=== PATIENT | female | born 1975 | race American Indian/Alaskan Native ===

== ENCOUNTER 2017-02-09 20:07 | Emergency (ER) | payer OTHER ==
[2017-02-09 21:22] LABS: Basophils % (Auto) 0.3 % (0.0-1.8); Eosinophils % (Auto) 0.3 % (0.0-4.3); Hematocrit 27.5 % (30.3-42.9); Hemoglobin 8.2 gm/dl (10.1-14.3); Mean Corpuscular HGB Conc 30 % (30-34); Platelet Count 353 K/mm3 (140-440); Red Blood Count 4.65 M/mm3 (3.65-5.03); Red Cell Distribution Width 19.9 % (13.2-15.2)
[2017-02-09 21:27] LABS: Mean Corpuscular Hemoglobin 18 pg (28-32); Mean Corpuscular Volume 59 fl (79-97)
[2017-02-09 21:45] LABS: Alanine Aminotransferase 8 units/L (7-56); Albumin 3.8 g/dL (3.9-5); Alkaline Phosphatase 72 units/L (35-129); Anion Gap 18 mmol/L; Bilirubin,Total 0.3 mg/dL (0.1-1.2); Blood Urea Nitrogen 10 mg/dL (7-17); Calcium 9.3 mg/dL (8.4-10.2); Carbon Dioxide 23 mmol/L (22-30); Chloride 97.3 mmol/L (98-107); Glucose 120 mg/dL (65-100); Lipase 23 units/L (13-60); Potassium 3.3 mmol/L (3.6-5.0); Sodium 135 mmol/L (137-145); Total Protein 7.7 g/dL (6.3-8.2)
[2017-02-10 02:06] LABS: Bacteria,Urine 1+ /HPF (Negative); Mucus,Urine FEW /HPF
[2017-02-10 02:15] LABS: Bilirubin,Urine NEG (Negative); Blood,Urine SM (Negative); Ketones,Urine NEG (Negative); Leukocyte Esterase,Urine TR (Negative); Nitrite,Urine NEG (Negative); Urobilinogen,Urine < 2.0 mg/dL (<2.0)
--- NOTE | 2017-02-10 05:26 | Emergency Department Report ---
ED Abdominal Pain HPI - General Chief Complaint: Abdominal Pain Stated Complaint: FEVER/HEADACHE/ABD PAIN Time Seen by Provider: 02/10/17 04:12 Source: patient Mode of arrival: Ambulatory Limitations: No Limitations - History of Present Illness MD Complaint: abdominal pain, other (headache, nausea, diarrhea) -: days(s) (4) Location: diffuse Radiation: none Migration to: no migration Severity: moderate Severity scale (0 -10): 10 Quality: cramping Consistency: constant Improves With: nothing Worsens With: nothing Associated Symptoms: nausea, diarrhea - Related Data Previous Rx's Medication Instructions Recorded Last Taken Type Albuterol Sulfate [Ventolin HFA] 2 puff IH Q4H PRN #1 hfa.aer.ad 11/30/14 Unknown Rx Amoxicillin [Trimox CAP] 500 mg PO Q8H #30 capsule 11/30/14 Unknown Rx Loratadine [Claritin] 10 mg PO DAILY #30 tablet 11/30/14 Unknown Rx Promethazine /Codeine 5 ml PO Q6H PRN #150 ml 11/30/14 Unknown Rx [Phenergan/Codeine 6.25-10 mg/5 ml] predniSONE [Deltasone] 40 mg PO QDAY #10 tab 11/30/14 Unknown Rx Ondansetron [Zofran ODT TAB] 8 mg PO Q8HR PRN #12 tab.rapdis 02/10/17 Unknown Rx traMADol [Ultram 50 MG tab] 50 mg PO Q6HR PRN #12 tablet 02/10/17 Unknown Rx Allergies Allergy/AdvReac Type Severity Reaction Status Date / Time No Known Allergies Allergy Unverified 06/24/14 13:06 ED Review of Systems ROS: Stated complaint: FEVER/HEADACHE/ABD PAIN Other details as noted in HPI Comment: All other systems reviewed and negative ED Past Medical Hx - Past Medical History Previous Medical History?: No Hx Hypertension: No Hx CVA: No Hx Heart Attack/AMI: No Hx Congestive Heart Failure: No Hx Diabetes: No Hx Deep Vein Thrombosis: No Hx Pulmonary Embolism: No Hx GERD: No Hx Liver Disease: No Hx Renal Disease: No Hx Sickle Cell Disease: No Hx Arthritis: No Hx Headaches / Migraines: No Hx Seizures: No Hx Kidney Stones: No Hx Psychiatric Treatment: No Hx Asthma: No Hx COPD: No Hx Tuberculosis: No Hx Dementia: No Hx HIV: No - Surgical History Past Surgical History?: Yes Hx Coronary Stent: No Hx Open Heart Surgery: No Hx Pacemaker: No Hx Internal Defibrillator: No Hx Cholecystectomy: No Hx Appendectomy: No Hx Breast Surgery: No Additional Surgical History: - Social History Smoking Status: Current Every Day Smoker Substance Use Type: Alcohol - Medications Home Medications: Home Medications Medication Instructions Recorded Confirmed Last Taken Type Albuterol Sulfate [Ventolin HFA] 2 puff IH Q4H PRN #1 hfa.aer.ad 11/30/14 Unknown Rx Amoxicillin [Trimox CAP] 500 mg PO Q8H #30 capsule 11/30/14 Unknown Rx Loratadine [Claritin] 10 mg PO DAILY #30 tablet 11/30/14 Unknown Rx Promethazine /Codeine 5 ml PO Q6H PRN #150 ml 11/30/14 Unknown Rx [Phenergan/Codeine 6.25-10 mg/5 ml] predniSONE [Deltasone] 40 mg PO QDAY #10 tab 11/30/14 Unknown Rx Ondansetron [Zofran ODT TAB] 8 mg PO Q8HR PRN #12 tab.rapdis 02/10/17 Unknown Rx traMADol [Ultram 50 MG tab] 50 mg PO Q6HR PRN #12 tablet 02/10/17 Unknown Rx ED Physical Exam - General Limitations: No Limitations General appearance: alert, in no apparent distress - Head Head exam: Present: atraumatic, normocephalic - Eye Eye exam: Present: normal appearance - ENT ENT exam: Present: mucous membranes moist - Neck Neck exam: Present: normal inspection - Respiratory Respiratory exam: Present: normal lung sounds bilaterally. Absent: respiratory distress - Cardiovascular Cardiovascular Exam: Present: regular rate, normal rhythm. Absent: systolic murmur, diastolic murmur, rubs, gallop - GI/Abdominal GI/Abdominal exam: Present: soft, tenderness (MILD DIFFUSE), normal bowel sounds. Absent: distended, guarding, rebound, rigid, organomegaly, pulsatile mass, hernia - Extremities Exam Extremities exam: Present: normal inspection - Back Exam Back exam: Present: normal inspection - Neurological Exam Neurological exam: Present: alert, oriented X3 - Psychiatric Psychiatric exam: Present: normal affect, normal mood - Skin Skin exam: Present: warm, dry, intact, normal color. Absent: rash ED Course Vital Signs 02/09/17 02/10/17 02/10/17 21:36 00:44 08:07 Temperature 101.2 F H 100.0 F H Pulse Rate 121 H 107 H 66 Respiratory 18 16 15 Rate Blood Pressure 116/72 Blood Pressure 123/77 106/65 [Right] O2 Sat by Pulse 100 100 95 Oximetry ED Medical Decision Making - Lab Data Result diagrams: 02/09/17 21:06 02/09/17 21:06 - Medical Decision Making Results discussed with the patient. He should follow up with her PMD for the abdominal pain and her anemia. Critical care attestation.: If time is entered above; I have spent that time in minutes in the direct care of this critically ill patient, excluding procedure time. ED Disposition Clinical Impression: Abdominal pain, Nausea & vomiting, Headache, Anemia Clinical Impression: (Ruled Out): The administrative codes within the [employer] content you are accessing may have as of 01/23/2017. Please contact your IT Dept/Help Desk and request the latest Regulatory release be installed. IT Dept/Help Desk- Please refer to our FAQ page ([email or web address]) or contact [employer] Customer Support at [email or web address] Disposition: DISCHARGED TO HOME OR SELFCARE Is pt being admited?: No Condition: Stable Instructions: Tension Headache (ED), Acute Nausea and Vomiting (ED), Abdominal Pain (ED), Anemia (ED) Prescriptions: Ondansetron [Zofran ODT TAB] 8 mg PO Q8HR PRN #12 tab.rapdis PRN Reason: Nausea traMADol [Ultram 50 MG tab] 50 mg PO Q6HR PRN #12 tablet PRN Reason: Pain Referrals: PRIMARY CARE,MD [Primary Care Provider] - 3-5 Days
[2017-02-10] MEDS: NACL 0.9% 1000 ML 1,000 ML IV ONE (05:59)
[2017-02-10] MEDS: K-DUR PO ONE (07:17)
[2017-02-10] MEDS: MOTRIN PO ONE (07:17)
--- NOTE | 2017-02-10 07:49 | XRay Report ---
ABDOMINAL SERIES: History: Abdominal pain and vomiting. Erect chest film shows no acute or significant changes involving the heart or lung agee. There is no evidence of free air beneath the diaphragms. The gas pattern within the abdomen is unremarkable. There is no evidence of bowel dilatation, significant air-fluid levels, or masses. Organ shadows are unremarkable. IMPRESSION: Abdominal series within normal limits.
[2017-02-10 08:10] VITALS: BP 106/65
== END 2017-02-10 08:12 | disposition home or self-care (01) ==
LOC: ED 20:07
DX: R10.9 Unspecified abdominal pain (principal); R11.2 Nausea with vomiting, unspecified; D64.9 Anemia, unspecified; F17.200 Nicotine dependence, unspecified, uncomplicated
CPT/HCPCS: 36415; 74022; 80053; 81001; 83690; 84703; 85025; 96360; 99284; J7030

== ENCOUNTER 2018-06-06 10:00 | Inpatient (IN) | payer SELFPAY ==
[2018-06-06 11:31] LABS: BUN/Creatinine Ratio 14; Blood Urea Nitrogen 7 mg/dL (7-17); Calcium 9.3 mg/dL (8.4-10.2); Hemolysis Index 10
--- NOTE | 2018-06-06 11:35 | Anesthesia Consultation ---
Anesthesia Consult and Med Hx Date of service: 06/06/18 (For procedure 06/08/18) - Airway Anesthetic Teeth Evaluation: Good ROM Head & Neck: Adequate Mental/Hyoid Distance: Adequate Mallampati Class: Class I Intubation Access Assessment: Good - Pulmonary Exam CTA: Yes - Cardiac Exam Cardiac Exam: RRR - Pre-Operative Health Status ASA Pre-Surgery Classification: ASA2 Proposed Anesthetic Plan: General Nerve Block: TAP (Currently undecided on TAP block) - Pre-Anesthesia Comment Pre-Anesthesia Comments: PMH smoking, anemia scheduled for open myomectomy. - Pulmonary Hx Smoking: Yes (CIAGARS AND HOOKAH) Hx Asthma: No Hx Respiratory Symptoms: No COPD: No Hx Sleep Apnea: No (FRANDY PRE SCREEN NEGATIVE) - Cardiovascular System Hx Hypertension: No Hx Heart Attack/AMI: No Hx Pacemaker: No Hx Internal Defibrillator: No Hx Heart Murmur: Yes (asymptomatic) - Central Nervous System Hx Seizures: No CVA: No - Gastrointestinal Hx Gastroesophageal Reflux Disease: No - Endocrine Hx Renal Disease: No Hx Liver Disease: No Hx Insulin Dependent Diabetes: No Hx Non-Insulin Dependent Diabetes: No Hx Thyroid Disease: No - Hematic Hx Anemia: Yes (last blood transfusion 02/2017) Hx Sickle Cell Disease: No (SC TRAIT ONLY) - Other Systems Hx Cancer: No Hx Obesity: No
[2018-06-06 11:36] LABS: Red Blood Count 4.97 M/mm3 (3.65-5.03)
[2018-06-06 11:37] LABS: Hemoglobin 9.3 gm/dl (10.1-14.3); Mean Corpuscular HGB Conc 31 % (30-34); Mean Corpuscular Hemoglobin 19 pg (28-32); Mean Corpuscular Volume 60 fl (79-97); Platelet Count 347 K/mm3 (140-440); Red Cell Distribution Width 20.5 % (13.2-15.2)
[2018-06-06] MEDS ORDERED: NEURONTIN PO NR (12:00)
[2018-06-06] MEDS ORDERED: LACTATED RINGERS 1,000 ML IV SCH (12:00)
[2018-06-06 13:29] LABS: Basophils % (Manual) 0 % (0.0-1.8); Eosinophils % (Manual) 0 % (0.0-4.3); Total Cells Counted 100
[2018-06-06 13:30] LABS: Anisocytosis 2+; Hypochromasia 2+; Ovalocytes Few; Platelet Estimate Cons; Tear Drop Cells Few
--- NOTE | 2018-06-07 17:21 | History and Physical Report ---
History of Present Illness Date of examination: 06/06/18 Date of admission: 06/08/2018 Chief complaint: heavy menses and pain History of present illness: 42y/o with a history of heavy menses and pain. She reports discomfort with her menses. Pelvic ultrasound demonstrated findings of a 7.3cm leiomyoma. The patient desires to conceive in the future and elects to preserve her fertility. 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 Social history: single - Obstetrical History : 2 Para: 1 Hx # Term Pregnancies: 1 Number of Pregnancies: 0 Spontaneous Abortions: 0 Induced : 1 Number of Living Children: 1 Medications and Allergies Allergies Allergy/AdvReac Type Severity Reaction Status Date / Time adhesive tape AdvReac Rash Verified 06/02/18 09:56 Home Medications Medication Instructions Recorded Confirmed Last Taken Type No Known Home Medications [No 06/02/18 06/02/18 Unknown History Reported Home Medications] Active Meds: Active Medications Albuterol (Proair) 1 puff IH PREOP PRN PRN Reason: Wheezing Stop: 06/08/18 23:00 Celecoxib (Celebrex) 200 mg PO PREOP NR Stop: 06/08/18 23:00 Gabapentin (Neurontin) 300 mg PO PREOP NR Stop: 06/08/18 23:59 Lactated Ringer's (Lactated Ringers) 1,000 mls @ 100 mls/hr IV DIRECT ABIDA Review of Systems All systems: negative Genitourinary: vaginal bleeding, pelvic pain - Vital Signs Vital signs: Vital Signs Temp Pulse Resp BP 99 F 64 20 124/80 06/06/18 10:30 06/06/18 10:30 06/06/18 10:30 06/06/18 10:30 Temp Pulse Resp BP Pulse Ox 99 F 64 20 124/80 06/06/18 10:30 06/06/18 10:30 06/06/18 10:30 06/06/18 10:30 - Physical Exam Breasts: Positive: deferred Cardiovascular: Regular rate Lungs: Positive: Clear to auscultation Abdomen: Positive: normal appearance Results Result Diagrams: 06/06/18 10:50 06/06/18 10:50 All other labs normal. Assessment and Plan - Patient Problems (1) Menorrhagia Status: Acute Plan to address problem: scheduled for an exploratory laparotomy and myomectomy (2) Anemia Status: Acute (3) Leiomyoma Status: Acute
[2018-06-08] MEDS ORDERED: ANCEF/STERILE WATER 2 GM/20 ML 2 GM/20 ML SYRINGE IV SCH (06:00)
[2018-06-08] MEDS ORDERED: PROAIR IH PRN (06:00)
[2018-06-08] MEDS ORDERED: DILAUDID ONE (09:35)
[2018-06-08] MEDS ORDERED: XYLOCAINE MPF 2% ONE (09:35)
[2018-06-08] MEDS ORDERED: ZEMURON IV ONE (09:35)
[2018-06-08] MEDS ORDERED: DIPRIVAN 10 MG/ML IV ONE ×2 (09:36→11:50)
--- NOTE | 2018-06-08 10:03 | Anesthesia Day of Surgery ---
Anesthesia Day of Surgery - Day of Surgery Patient Examined: Yes Patient H&P Reviewed: Yes Patient is NPO: Yes
[2018-06-08] MEDS ORDERED: PROVENTIL IH PRN (10:05)
[2018-06-08] MEDS ORDERED: Vasostrict ONE (10:27)
[2018-06-08] MEDS ORDERED: NACL 0.9% 100 ML ONE (10:27)
[2018-06-08] MEDS ORDERED: ACD-A 500 ML IV ONE (10:44)
[2018-06-08] MEDS ORDERED: BLOXIVERZ ONE (11:02)
[2018-06-08] MEDS ORDERED: ZOFRAN ONE (11:02)
[2018-06-08] MEDS ORDERED: ROBINUL ONE (11:02)
[2018-06-08] MEDS ORDERED: DECADRON ONE (11:02)
[2018-06-08] MEDS ORDERED: SUBLIMAZE ONE (11:05)
[2018-06-08] MEDS ORDERED: NACL 0.9% IV ONE (11:10)
[2018-06-08] MEDS ORDERED: NACL 0.9% IR ONE (11:10)
[2018-06-08] MEDS ORDERED: ACD-A IV ONE (11:10)
[2018-06-08] MEDS ORDERED: Vasostrict IM ONE (11:10)
--- NOTE | 2018-06-08 12:16 | Operative Report ---
Operative Report Operative Report: Date of procedure: 06/08/2018 Pre-operative diagnosis: Symptomatic uterine fibroid Post-operative diagnosis: Same as above Procedure name(s): Exploratory laparotomy; myomectomy Surgeon: Violetta Nagy M.D. Epic [place] Analyst: None Anesthesia: General endotracheal anesthesia Findings Enlarged fibroid uterus with one dominant leiomyoma measuring approximately 6 cm Procedure The patient was taken to the operating room and given general endotracheal anesthesia without complication. The patient was prepped and draped in a normal sterile fashion. A timeout was performed to confirm the identity and procedure for the patient. If that is still skin incision was made down to the layer of the fascia which was nicked in the midline and extended laterally with the Bovie cautery. It was noted that the fascia was slightly thickened from a prior delivery. The superior aspect of the rectus fashion was grasped , clamped 2 and the rectus muscles off sharply this was done in inferior fashion as well. The rectus muscles in the midline and the peritoneum entered sharply. Upon entry into the peritoneal cavity was noted that the uterus was enlarged with findings of normal tubes and ovaries bilaterally. The leiomyoma was palpated on the anterior aspect of the uterus. The serosa was injected with diluted Pitressin over the leiomyoma. A self retainer retractor was placed along with warm laparotomy sponges. After injection of the Pitressin the serosa was incised with the Bovie cautery. With sharp and blunt dissection the leiomyoma was grasped with a thyroid Miguel clamp. Eventually the leiomyoma was transected from the underlying myometrium. Suspect that there was probable entry into the endometrial cavity. The myometrium was then reapproximated with 0 Vicryl in a running locked fashion. The myometrium was reapproximated in 2 layers. The serosa was reapproximated with a baseball stitch involving 2-0 Vicryl. The site was hemostatic. Copious irrigation of the pelvis was performed. Interceed was placed over the uterine incision along with Do. The self-retaining retractor and warm laparotomy sponges were then removed. The peritoneum was then reapproximated with 3-0 Vicryl. The fascia was then closed in a running running fashion with 0 Vicryl. The skin was then reapproximated with 3-0 Monocryl on a Josue needle. Skin adhesive was placed on the incision to reapproximate the incision. The patient was then successfully extubated and taken to the recovery room in stable condition. All sponge laps and needle counts were correct 2. Specimen sent to pathology was a leiomyoma.
[2018-06-08] MEDS ORDERED: NARCAN 0.4 MG/1 ML IV PRN (12:25)
[2018-06-08] MEDS ORDERED: MOTRIN PO PRN (12:26)
[2018-06-08] MEDS ORDERED: AMBIEN PO PRN (12:26)
[2018-06-08] MEDS ORDERED: MILK OF MAGNESIA PO PRN (12:26)
[2018-06-08] MEDS ORDERED: TYLENOL PO PRN (12:26)
[2018-06-08] MEDS ORDERED: ZOFRAN IV PRN (12:26)
[2018-06-08] MEDS: TORADOL IV SCH ×2 (12:41→18:57)
[2018-06-08] MEDS: DILAUDID IV PRN ×4 (12:42→13:24)
[2018-06-08] MEDS ORDERED: MORPHINE PCA 30MG/30ML IV SCH (13:00)
[2018-06-08] MEDS: D5LR 1,000 ML IV SCH (13:25)
--- NOTE | 2018-06-08 14:35 | Post Anesthesia Evaluation ---
- Post Anesthesia Evaluation Patient Participated: Yes Airway Patent: Yes Stable Respiratory Function: Yes Nausea/Vomiting: No Temp > 96.8F: Yes Pain Manageable: Yes Adequeate Hydration: Yes Anesthesia Complications: No Block Receding Appropriately: Not Applicable
[2018-06-08] MEDS ORDERED: TORADOL ONE (18:56)
[2018-06-09] MEDS: TORADOL IV SCH ×4 (00:09→18:40)
[2018-06-09 06:16] LABS: Hematocrit 24.1 % (30.3-42.9); Hemoglobin 7.5 gm/dl (10.1-14.3)
[2018-06-09] MEDS: D5LR 1,000 ML IV SCH (07:04)
--- NOTE | 2018-06-09 08:47 | Progress Note ---
Assessment and Plan - Patient Problems (1) Menorrhagia Current Visit: No Status: Acute Plan to address problem: routine postoperative care advance diet as tolerated (2) Anemia Current Visit: No Status: Acute (3) Leiomyoma Current Visit: No Status: Acute Subjective - Subjective Date of service: 06/09/18 Interval history: Discussed findings of surgery with patient. Fields has been removed. She denies any nausea and vomiting. Pain is controlled Patient reports: appetite normal, pain well controlled Objective - Vital Signs Latest vital signs: Vital Signs Temp Pulse Resp BP BP Pulse Ox 06/09/18 06:00 20 06/09/18 04:25 98.2 F 54 L 18 88/43 06/09/18 04:00 20 06/09/18 02:00 18 06/09/18 00:00 98.9 F 52 L 18 82/52 06/08/18 22:00 18 06/08/18 20:05 16 06/08/18 20:00 98.2 F 58 L 18 134/70 06/08/18 17:30 98.8 F 57 L 16 87/50 06/08/18 14:00 98.3 F 52 L 16 101/55 101/55 100 06/08/18 13:54 16 06/08/18 13:30 98.0 F 70 12 98/60 96 06/08/18 13:24 14 06/08/18 13:15 66 15 98/60 100 06/08/18 13:14 14 06/08/18 13:00 51 L 14 100/60 100 06/08/18 12:53 15 06/08/18 12:51 15 06/08/18 12:45 63 13 116/58 100 06/08/18 12:42 16 06/08/18 12:41 14 06/08/18 12:30 64 12 104/66 100 06/08/18 12:25 57 L 14 103/67 100 06/08/18 12:20 98.4 F 63 12 109/69 100 06/08/18 09:45 98.6 F 66 16 98/64 100 06/08/18 09:36 16 Intake and Output 06/08/18 06/09/18 06/09/18 22:59 06:59 14:59 Intake Total 1360 240 Output Total 400 600 Balance 960 -360 Intake: IV 1000 D5lr 1,000 ml @ 125 mls/ 1000 hr IV DIRECT ABIDA Rx#: [id number] Oral 360 240 Output: Urine 400 600 Indwelling Catheter 400 600 Other: Total, Intake Amount 360 240 Total, Output Amount 400 600 - Exam Abdomen: Present: normal appearance Incision: Present: dressed - Labs Labs: Abnormal lab results 06/09/18 Range/Units 05:24 Hgb 7.5 L (10.1-14.3) gm/dl Hct 24.1 L (30.3-42.9) %
[2018-06-09] MEDS: PERCOCET 5/325 PO PRN (23:41)
[2018-06-10] MEDS: TORADOL IV SCH ×3 (02:04→13:16)
[2018-06-10] MEDS: PERCOCET 5/325 PO PRN (12:50)
[2018-06-10 13:13] VITALS: BP 107/55
--- NOTE | 2018-06-10 13:14 | Progress Note ---
Assessment and Plan A/P pod#2 open hysterectomy ambulating well pain tolerated d/c home to f/u in 4 weeks Subjective - Subjective Date of service: 06/10/18 Principal diagnosis: s/p hysterectomy Patient reports: appetite normal, voiding normally, pain well controlled, flatus , ambulating normally Objective - Vital Signs Latest vital signs: Vital Signs Temp Pulse Resp BP BP Pulse Ox 06/10/18 07:23 98.6 F 65 18 89/51 98 06/10/18 04:30 98.0 F 74 18 103/52 06/10/18 00:00 98.2 F 91 H 18 86/59 06/09/18 22:00 16 06/09/18 20:25 98.2 F 54 L 18 88/43 06/09/18 15:59 98.6 F 68 18 97/46 98 Intake and Output 06/09/18 06/10/18 06/10/18 23:59 07:59 15:59 Intake Total 2480 240 240 Output Total 400 Balance 2080 240 240 Intake: IV 2000 D5lr 1,000 ml @ 125 mls/ 1000 hr IV DIRECT ABIDA Rx#: [id number] Lactated Ringers 1,000 ml 1000 @ 100 mls/hr IV DIRECT ABIDA Rx#:[id number] Oral 480 240 240 Output: Urine 400 Indwelling Catheter 400 Other: Total, Intake Amount 480 240 240 Total, Output Amount 400 Voiding Method Toilet # Voids Indwelling Catheter 1 2 - Exam Breasts: Present: normal Cardiovascular: Present: Regular rate, Normal S1 Lungs: Present: Clear to auscultation, Normal air movement Abdomen: Present: normal appearance, soft, normal bowel sounds. Absent: distention, tenderness, guarding Vulva: both: normal Extremities: Present: normal Deep Tendon Reflex Grade: Normal +2 Incision: Present: normal, dry, intact
--- NOTE | 2018-06-10 13:16 | Discharge Summary ---
Providers - Providers Date of Admission: 06/08/18 08:29 Date of discharge: 06/10/18 Attending physician: OLIVA RIOS Primary care physician: AMOL LINDER MD Hospitalization Reason for admission: other Procedure: other (hysterectomy) Condition at discharge: Good Disposition: DC-01 TO HOME OR SELFCARE Plan - Discharge Medications Prescriptions: Docusate Sodium [Colace] 100 mg PO BID PRN #60 capsule PRN Reason: Constipation Ferrous Sulfate [Feosol 325 MG tab] 325 mg PO BID #60 tablet Ibuprofen [Motrin] 800 mg PO Q8HR PRN #60 tablet PRN Reason: Pain, Mild (1-3) Oxycodone HCl/Acetaminophen [Percocet 7.5/325 mg] 1 each PO Q6HR PRN #45 tablet PRN Reason: Pain - Provider Discharge Summary Activity: routine, no sex for 6 weeks, no strenuous exercise Diet: routine Instructions: routine Additional instructions: [] Smoking cessation referral if applicable(refer to patient education folder for contact #) [] Refer to [facility]'s [facility] Booklet Call your doctor immediately for: * Fever > 100.5 * Heavy vaginal bleeding ( >1 pad per hour) * Severe persistent headache * Shortness of breath * Reddened, hot, painful area to leg or breast * Drainage or odor from incision. * Keep incision clean and dry at all times and follow doctor's instructions regarding bathing/showering - Follow up plan Follow up: AMOL LINDER MD [Primary Care Provider] - 07/06/18
[2018-06-10] MEDS ORDERED: CITRATE OF MAGNESIA PO PRN (14:00)
== END 2018-06-10 15:39 | disposition home or self-care (01) | DRG 743 ==
LOC: 3A 06-08 08:29 → OB 06-08 12:43
PROVIDERS: ADMIT Obstetrics & Gynecology; ATTEND Obstetrics & Gynecology
PROC: 0UB90ZZ Excision of Uterus, Open Approach (ICD-10-PCS; principal; 2018-06-08)
DX: D25.9 Leiomyoma of uterus, unspecified (principal); F17.200 Nicotine dependence, unspecified, uncomplicated; N92.0 Excessive and frequent menstruation with regular cycle; D64.9 Anemia, unspecified
CPT/HCPCS: 36415; 80048; 84703; 85007; 85014; 85018; 85025; 86850; 86900; 86901; 88305; C1765; J0690; J1100; J1170; J1885; J2270; J2405; J2704; J2710; J3010; J7120; J7121